=== PATIENT | male | born 1985 | race African-American/Black ===

== ENCOUNTER → 2017-05-12 11:33 | Outpatient (CLI) | payer OTHER, SELFPAY ==
--- NOTE | 2017-05-12 13:31 | STRESSREP ---
Stress Test Report Treadmill EKG report: Resting EKG: Normal sinus rhythm, normal axis, normal intervals, poor R-wave progression across the precordium which may be secondary to lead misplacement. No evidence of previous myocardial infarction. Treadmill EKG: The patient exercised according to a Tino protocol for 10 minutes and 30 seconds, achieving a maximum workload of 12.7 METS. Resting heart rate was initially 71 beats a minute and zack to maximum 1 7 9 bpm which represents 94% of the maximal age-predicted heart rate. Resting blood pressure is 130/84 and zack to maximum of 164/72. Test was terminated due to leg discomfort. During exercise the patient's heart rate increased as expected. Patient had no dynamic EKG changes to suggest ischemia. Rare PVCs during exercise. Appropriate blood pressure response to exercise. Conclusions normal adequate treadmill EKG. Negative for ischemia by EKG criteria. No anginal symptoms noted. Rare PVCs during exercise noted. Appropriate blood pressure response to exercise. Patient tolerated procedure well. No complications.
[2017-05-12 13:52] LABS: ALB/GLOB Ratio 1.1 RATIO (0.9-2.4); AST(SGOT) 15 U/L (15-37); Alanine Aminotransfer ALT/SGPT 22 U/L (16-61); Albumin, Serum 3.7 g/dL (3.2-5.0); Alkaline Phosphatase 56 U/L (45-117); Anion Gap 8 (5-15); BUN 14 mg/dL (7-18); BUN/Creat Ratio 13.5 RATIO (10-20); Calcium,Total 8.8 mg/dL (8.5-10.1); Chloride 107 mmol/L (98-107); Cholesterol 145 mg/dL (200); Creatinine, Serum 1.04 mg/dL (0.70-1.30); EST Glomerular Filtration Rate 89 mL/min (>60); Est Glom Filt Rate - Afr Amer 108 mL/min (>60); Globulin 3.3 g/dL (2.2-4.2); Glucose 75 mg/dL (74-106); High Density Lipoprotein 45 mg/dL; Potassium 3.6 mmol/L (3.5-5.1); Sodium Level 142 mmol/L (136-145); Triglycerides 137 mg/dL; Very Low Density Lipoprotein 27 mg/dL (5-40)
== END ==
PROVIDERS: Visit Provider Nurse Practitioner Family
DX: Z00.00 Encounter for general adult medical examination without abnormal findings (principal); R07.89 Other chest pain
CPT/HCPCS: 36415; 80053; 80061; 93017

== ENCOUNTER 2018-09-09 19:27 | Emergency (ER) | payer OTHER, SELFPAY ==
[2018-09-09 19:29] VITALS: BP 125/71; PULSE 66; PULSE 68; RESP 17; TEMP 36.1; O2SAT 97; BMI 37.1
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
[2018-09-09 20:33] VITALS: RESP 14
== END 2018-09-09 20:33 | disposition home or self-care (01) ==
LOC: ED 20:29
PROVIDERS: Emergency Provider Emergency Medicine; Family Provider Physician Assistant; PCP Physician Assistant
DX: S16.1XXA Strain of muscle, fascia and tendon at neck level, initial encounter (principal); V89.2XXA Person injured in unspecified motor-vehicle accident, traffic, initial encounter; Y93.9 Activity, unspecified; Y92.9 Unspecified place or not applicable; Z72.0 Tobacco use
CPT/HCPCS: 72040; 99282

== ENCOUNTER 2021-10-28 09:05 | Emergency (ER) | payer OTHER, SELFPAY ==
[2021-10-28 09:06] VITALS: BP 138/117; PULSE 73; RESP 18; TEMP 36.1; O2SAT 99; BMI 32.8
--- NOTE | 2021-10-28 09:14 | EX.ED.UPPERE ---
HPI History of Present Illness HPI Narrative: Patient presents with laceration to his left hand that occurred today. Patient states he was using an [employer] knife to cut plastic bottles. Patient states the knife slipped and cut his left hand. Patient is right-hand dominant. Patient is unsure of his last tetanus. Patient denies any pain. Patient denies any paresthesias or weakness. Patient states bleeding stopped after few minutes. Patient denies any other injuries. Chief Complaint: Laceration Informant: patient Occured/Mechanism Comment: Cut with an X-Acto knife Onset/Context/Timing Onset: Today Context: Sudden Onset Timing: Continuous Location: Left hand Worsened by: Nothing Relieved by: Nothing Associated Symptoms Associated Symptoms: Negative for Parasthesia, Weakness or Loss of Funtion Narrative Tetanus Immunization: Unknown [facility] Medical History (Updated 10/28/21 @ 09:[address] Marco A Bauman DO) No acute medical problems Medical History no medical history no medical history Home Medications NK 10/28/21 [History Last Taken Unknown] Allergy/AdvReac Type Severity Reaction Status Date / Time No Known Allergies Allergy Verified 10/28/21 09:12 Surgical History no surgical history no surgical history Social History Smoking Status: Current every day smoker tobacco type: cigarettes ROS ROS ED Constitutional Constitutional ED: Denies chills or fever(s) Eyes Eyes: Denies blurry vision or change in vision ENT ENT ED: Denies rhinorrhea or sore throat Cardiovascular Cardiovascular: Denies chest pain or palpitations Respiratory/Chest Respiratory/Chest: Denies cough or dyspnea Gastrointestinal Gastrointestinal: Denies nausea or vomiting Genitourinary Genitourinary ED: Denies dysuria or hematuria Musculoskeletal Musculoskeletal: Denies back pain or neck pain Integumentary Denies abscess or rash Neurologic Neurologic: Denies headache(s) or weakness Allergic/Immunologic Allergic/Immunologic ED: Denies mouth swelling or urticaria EXAM Physical Exam Const Vital Signs: 10/28/21 09:06 Temperature 97 F L Temperature Source Temporal Pulse Rate 73 Respiratory Rate 18 Blood Pressure 138/117 H Blood Pressure Mean 124 Pulse Ox 99 Oxygen Delivery Method Room Air Positive well nourished and well developed General Appearance ED: well developed and NAD HEENT Reports moist mucous membranes Neck full ROM Neuro oriented x3, CN's II-XII intact bilaterally, moves all extremities, no focal motor deficits and no sensory deficits noted Sensorium / Orientation: alert Motor Exam: strength 5/5 throughout Psych mental status grossly normal Skin Skin Narrative: There is a 3.5 cm full-thickness linear laceration in the webspace between the thumb and index finger. There is moderate gapping of the wound margins. There are no foreign bodies visualized. There are no tendon lacerations noted. Sensation was intact to light touch in all digits. Capillary refill was less than 2 seconds in all digits. Strength is 5/5 in the radial, median, and ulnar areas. MDM MDM MDM Narrative Medical decision making narrative: Patient was given a tetanus booster. The wound was cleaned and irrigated with copious amounts of normal saline. The wound was anesthetized with 1% plain lidocaine locally. The wound was closed with 7 simple interrupted #4-0 nylon sutures under sterile technique. Patient tolerated the procedure well. Bacitracin dressing was applied. Patient was instructed to keep the wound clean and dry. Patient was instructed to follow-up with his primary care physician in 7 days for wound recheck and suture removal. Patient understood and was agreeable with the plan. All questions were answered. Procedures Lacerations Left hand: Length: 3.5 cm Depth: Sub Q Shape: Linear Prep: Sterile Conditions and Chlorhexadine Laceration repair: Irrigated, Lidocaine, Local and Wound explored Irrigated (ml): 100 Number of Sutures/[place]: 7 Suture Information: Ethilon, Simple and 4-0 Discharge Plan Triage Chief Complaint: Laceration ED Provider: Marco A Bauman Dx/Rx/DC Orders Clinical Impression: Laceration of left hand, Tetanus toxoid vaccination administered at current visit Instructions: ED Laceration, Hand: All Closures Prescriptions: No Action NK Primary Care Provider: Janice Owens Referrals: Janice Owens PA [Primary Care Provider] - 7 Days for suture removal Disposition Disposition: Home, Self Care
[2021-10-28] MEDS: Diphth,Pertuss(Acell),Tet Vac 0.5 ML Vial IM (09:24)
[2021-10-28] MEDS: Lidocaine 1% (20 ml mdv) 20 ML Vial INFILT (09:46)
== END 2021-10-28 09:57 | disposition home or self-care (01) ==
LOC: ED 09:26
PROVIDERS: Emergency Provider Emergency Medicine; PCP Physician Assistant; Visit Provider Emergency Medicine
DX: S61.412A Laceration without foreign body of left hand, initial encounter (principal); F17.210 Nicotine dependence, cigarettes, uncomplicated; W26.0XXA Contact with knife, initial encounter; Z23 Encounter for immunization
CPT/HCPCS: 12002; 90471; 90715; 99283

== ENCOUNTER 2023-02-13 19:09 | Emergency (ER) | payer OTHER, SELFPAY ==
[2023-02-13 19:09] VITALS: BP 146/83; PULSE 62; RESP 16; TEMP 36.4; O2SAT 98; BMI 33.0
== END 2023-02-13 21:51 | disposition left against medical advice (07) ==
LOC: ED 22:48
PROVIDERS: PCP Physician Assistant
DX: Z00.00 Encounter for general adult medical examination without abnormal findings (principal)